=== PATIENT | male | born 1945 ===

== ENCOUNTER 2021-01-05 13:17 | Inpatient (IN) | payer MEDICARE ==
--- NOTE | 2021-01-05 14:40 | CT ---
CT BRAIN WITHOUT CONTRAST: Indications: Mental status change. Comparison: None FINDINGS: There is moderate cortical atrophy. Ventricles have normal size and position. Moderately severe chron ic ischemic white matter changes are seen in both cerebral hemispheres. There is no evidence of mass or hemorrhage. There is no evidence of acute cortical infarct. The paranasal sinuses and mastoids are clear. IMPRESSION: Cortical atrophy and moderately severe chronic ischemic white matter changes are noted. No evidence o f acute cortical infarct. POS: AGW
--- NOTE | 2021-01-05 15:04 | RAD ---
CHEST ONE VIEW: History: Altered mental status. Comparison: None FINDINGS: Exam is limited due to dense radiopacities projecting over both shoulders, midline upper abdomen and right arm. Within the limitation, there appears to be a right sided posterior 9th and 10th rib fractu res, age indeterminate. No definite pneumothorax. Cardiac silhouette and mediastinal contours appear within normal limits. No airspace consolidation. IMPRESSION: 1. Right posterolateral 9th and 10th rib fractures, age indeterminate. 2. No evidence for pneumonia. 3. Radiopacities with cloud like densities projecting over the shoulder bilaterally, midline upp er abdomen and right upper arm. POS: HOME
[2021-01-05 15:56] LABS: #Lymphocytes 0.7 thou/uL (1.20-3.40); #Monocytes 0.7 thou/uL (0.11-0.59); #Neutrophils 12.2 thou/uL (1.40-6.50); %Basophils 0.1 % (0.0-1.0); %Lymphocytes 5.1 % (21.0-51.0); %Neutrophils 89.8 % (42.0-75.0); Hemoglobin 13.7 g/dL (14.0-18.0); Mean Corpuscular HGB CONC 34.9 g/dL (32.0-36.0); Mean Corpuscular Hemoglobin 35.4 pg (27.0-31.0); Mean Platelet Volume 8.3 fL (7.4-10.4); Platelet Count 151 thou/uL (130-400); RBC Distribution Width 11.3 % (11.5-14.5); Red Blood Cell (RBC) Count 3.88 mill/uL (4.70-6.10); White Blood Cell (WBC) Count 13.5 thou/uL (4.8-10.8)
--- NOTE | 2021-01-05 16:17 | RAD ---
CHEST ONE VIEW: History: Falls. Slurred speech. Comparison: Same day FINDINGS: New left subclavian central venous catheter tip projects to the inferior SVC. No pneumothorax. Similar appearance of the right posterolateral 9th and 10th rib fractures. IMPRESSION: Uncomplicated left subclavian central venous catheter placement. POS: HOME
[2021-01-05 16:18] LABS: Acetaminophen Less than 6.0 mcg/mL (10.0-30.0); Alcohol Less than 10 mg/dL (Less than 10); Salicylate Less than 8.0 mg/dL (15.0-30.0)
[2021-01-05 16:19] LABS: ALT (SGPT) 139 U/L (8-55); AST (SGOT) 567 U/L (5-34); Albumin 2.5 g/dL (3.4-4.8); Alkaline Phosphatase 81 U/L (40-110); Anion Gap 21 mmol/L (10-20); BUN (Urea Nitrogen) 41 mg/dL (8.4-25.7); Bilirubin, Total 0.9 mg/dL (0.2-1.2); Calc. Creatinine Clearance 0 mL/min (70-130); Calcium 7.1 mg/dL (7.8-10.44); Carbon Dioxide 12 mmol/L (23-31); Chloride 96 mmol/L (98-107); Globulin 2.1 g/dL (2.4-3.5); Glucose 75 mg/dL (83-110); Lipase 127 U/L (8-78); Potassium 4.1 mmol/L (3.5-5.1); Protein, Total 4.6 g/dL (5.8-8.1); Sodium 125 mmol/L (136-145)
--- NOTE | 2021-01-05 16:27 | RAD ---
PELVIS ONE VIEW: History: Falls Comparison: None FINDINGS: Obterator rings are intact. No acute displaced fracture or malalignment. Dextroscoliotic change of the lower lumbar spine causes abutment to the right L5 transverse process o f the sacrum. Moderate osseous calcifications. IMPRESSION: No acute displaced fracture. If the patient is acutely unable to be unable to bear weight, CT would b e recommended. POS: HOME
[2021-01-05 16:48] LABS: CK (CPK) 13352 U/L (30-200)
[2021-01-05] MEDS ORDERED: Cefepime 2 GM VIAL ONE (16:54)
[2021-01-05] MEDS ORDERED: Vancomycin 1 GM/200 ML BAG ONE (16:54)
[2021-01-05 17:15] LABS: Bacteria/HPF None Seen HPF (None Seen); Bilirubin Negative (Negative); Blood, Urine 3+ (Negative); Clarity Clear (Clear); Glucose, Urine (Dipstick) Normal (Negative); Ketone, Urine 20 mg/dL (Negative); Leukocyte Negative Leu/uL (Negative); Nitrite Negative (Negative); Protein, Urine (Dipstick) 30 mg/dL (Neg-Trace); RBC/HPF 0-3 HPF (0-3); Specific Gravity, Urine 1.016 (1.002-1.036); Squamous Epithelial None Seen HPF (0-3); Urobilinogen Normal mg/dL (Less than 2)
[2021-01-05] MEDS ORDERED: Thiamine HCl 200 MG/2 ML VIAL SLOW IVP SCH (17:15)
[2021-01-05 17:25] LABS: Amphetamine Not Detected (NotDetected); Barbiturates Screen Not Detected (NotDetected); Benzodiazepine Screen Not Detected (NotDetected); Cocaine Metabolite Screen Not Detected (NotDetected); Medtox Control Line Valid? VALID (VALID); Medtox Reader # READER 4; Methadone Not Detected (NotDetected); Methamphetamine Not Detected (NotDetected); Opiate Screen Not Detected (NotDetected); Oxycodone Screen Not Detected (NotDetected); Phencyclidine (PCP) Not Detected (NotDetected); THC/Cannabinoid Screen Not Detected (NotDetected); Tricyclic Screen Not Detected (NotDetected)
[2021-01-05 18:06] LABS: SARS-CoV-2 NAA Rapid Test Not Detected (NotDetected)
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
[2021-01-05 19:27] LABS: Anion Gap 19 mmol/L (10-20); BUN (Urea Nitrogen) 37 mg/dL (8.4-25.7); Calc. Creatinine Clearance 0 mL/min (70-130); Calcium 6.4 mg/dL (7.8-10.44); Chloride 106 mmol/L (98-107); Glucose 67 mg/dL (83-110); Potassium 4.7 mmol/L (3.5-5.1); Sodium 129 mmol/L (136-145)
[2021-01-05 19:46] LABS: Carbon Dioxide 9 mmol/L (23-31)
[2021-01-05] MEDS ORDERED: Atropine Sulfate 1 mg/10 ml Syringe ONE (22:07)
[2021-01-05] MEDS ORDERED: Norepinephrine 8 MG/0.9% NS 250 ML ONE (22:09)
[2021-01-05] MEDS ORDERED: Rocuronium Bromide 10 MG/ML (10ML VIAL) ONE (22:12)
[2021-01-05] MEDS: Fentanyl CADD 100 ML IV SCH (22:30)
[2021-01-05] MEDS ORDERED: Dextrose 50% Abboject 50 ML SYRINGE ONE (22:43)
[2021-01-05 22:58] LABS: Actual Bicarbonate (HCO3a) 10.8 mEq/L (22-28); Analyzer IN Cardio ER; Base Excess (BEa) -16.6 mEq/L (-2.0 to +3.0); CO2 Tension 30.8 mmHg (35.0-45.0); Calcium, Ionized (arterial) 1.01 mmol/L (1.12-1.30); Carboxyhemoglobin (COHb) 0.3 gm% (0.0-3.0); Hemoglobin (Hb) 11.6 g/dL (14.0-18.0); Potassium - ABG Lab 3.54 mmol/L (3.70-5.30)
[2021-01-05] MEDS: Norepinephrine 8 MG/0.9% NS 250 ML IVPB SCH (23:00)
[2021-01-05] MEDS ORDERED: Sodium Bicarb 50 MEQ/50 ML VIAL ONE (23:01)
[2021-01-05 23:02] LABS: Anion Gap 18 mmol/L (10-20); BUN (Urea Nitrogen) 33 mg/dL (8.4-25.7); Calc. Creatinine Clearance 0 mL/min (70-130); Calcium 6.1 mg/dL (7.8-10.44); Carbon Dioxide 10 mmol/L (23-31); Chloride 109 mmol/L (98-107); Potassium 3.9 mmol/L (3.5-5.1); Sodium 133 mmol/L (136-145)
--- NOTE | 2021-01-05 23:02 | RAD ---
Chest one view HISTORY: Intubated. COMPARISON: Earlier exam on the same date. FINDINGS: Tip of the endotracheal catheter projects over the thoracic inlet. Nasogastric tube descend s the abdomen. Left subclavian central venous catheter unchanged in position. New ill-defined parenchymal opacity projects over the right lateral lung base. Mildly displaced right lateral rib fractures again demonstrated. No evidence of pneumothorax. IMPRESSION : Endotracheal catheter is in good radiographic position. Given the recent right rib fractures, the developing right lower lobe opacity may represent contusion .
[2021-01-05 23:07] LABS: Glucose 49 mg/dL (83-110)
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
[2021-01-05 23:09] LABS: pH, Arterial 7.16 (7.35-7.45)
[2021-01-05 23:10] LABS: Puncture Site LRA
--- NOTE | 2021-01-05 23:39 | CT ---
CT head noncontrast HISTORY: Cardiac arrest. COMPARISON: Earlier exam on the same date. FINDINGS: There is no evidence of acute intracranial hemorrhage or infarct. Diffuse cortical atrophy and chronic ischemic small vessel disease are again demonstrated. Physiologic calcification at the basal ganglia. There is no mass effect or shift of midline structures. Mild mucosal thickening in the ethmoid air ce lls and maxillary sinus. IMPRESSION : No acute abnormalities are demonstrated.
[2021-01-05] MEDS ORDERED: Dextrose 5% in Water 1,000 ML IV SCH (23:45)
[2021-01-06 00:20] LABS: Lactic Acid 1.9 mmol/L (0.5-2.2)
[2021-01-06 00:27] LABS: Analyzer IN Cardio ER; Base Excess (BEa) -11.3 mEq/L (-2.0 to +3.0); CO2 Tension 35.2 mmHg (35.0-45.0); Calcium, Ionized (arterial) 1.01 mmol/L (1.12-1.30); Carboxyhemoglobin (COHb) 0.3 gm% (0.0-3.0); Hemoglobin (Hb) 13.5 g/dL (14.0-18.0); O2 Tension (PaO2), arterial 77.6 mmHg (> 70.0); Potassium - ABG Lab 3.01 mmol/L (3.70-5.30)
[2021-01-06 00:33] LABS: Puncture Site RRA; pH, Arterial 7.25 (7.35-7.45)
[2021-01-06 02:58] LABS: Anion Gap 16 mmol/L (10-20); BUN (Urea Nitrogen) 29 mg/dL (8.4-25.7); Calc. Creatinine Clearance 62 mL/min (70-130); Calcium 6.6 mg/dL (7.8-10.44); Carbon Dioxide 14 mmol/L (23-31); Chloride 108 mmol/L (98-107); Glucose 159 mg/dL (83-110); Sodium 135 mmol/L (136-145)
[2021-01-06 03:01] LABS: Potassium 2.9 mmol/L (3.5-5.1)
[2021-01-06 04:18] LABS: ALT (SGPT) 153 U/L (8-55); AST (SGOT) 576 U/L (5-34); Albumin 2.5 g/dL (3.4-4.8); Alkaline Phosphatase 77 U/L (40-110); Bilirubin, Direct 0.7 mg/dL (0.1-0.3); Bilirubin, Total 0.9 mg/dL (0.2-1.2); Magnesium 1.8 mg/dL (1.6-2.6); Protein, Total 4.8 g/dL (5.8-8.1)
[2021-01-06] MEDS ORDERED: Electrolyte Replacement Protocol FS PRN (04:30)
[2021-01-06] MEDS ORDERED: Lorazepam 2 MG/ML VIAL ONE (04:33)
[2021-01-06] MEDS ORDERED: Magnesium 2 GM/50 ML 2 GM in Premix Bag 1 BAG IVPB SCH (04:45)
[2021-01-06 04:48] LABS: CK (CPK) 11614 U/L (30-200)
[2021-01-06] MEDS: Sodium Chloride 0.9% 1,000 ML IV SCH (04:48)
[2021-01-06] MEDS ORDERED: Lorazepam 2 MG/ML VIAL SLOW IVP SCH (05:00)
[2021-01-06] MEDS ORDERED: Diazepam 5 MG TAB PO PRN (05:01)
[2021-01-06] MEDS: Potassium Chloride 40 MEQ in Premix Bag 1 BAG IVPB SCH ×2 (05:17→09:35)
[2021-01-06] MEDS ORDERED: Vancomycin 1 GM/200 ML BAG ONE ×2 (05:28→18:08)
[2021-01-06] MEDS ORDERED: Diazepam 5 MG TAB PO SCH (05:30)
[2021-01-06] MEDS: Cefepime 1 GM in Sodium Chloride 0.9% 100 ML IVPB SCH ×2 (05:45→18:05)
[2021-01-06] MEDS: Norepinephrine 8 MG/0.9% NS 250 ML IVPB SCH ×4 (05:47→18:38)
[2021-01-06] MEDS: Vancomycin 1 GM in Premix Bag 1 BAG IVPB SCH ×2 (05:48→18:09)
[2021-01-06 06:55] LABS: Anion Gap 17 mmol/L (10-20); BUN (Urea Nitrogen) 28 mg/dL (8.4-25.7); Calc. Creatinine Clearance 61 mL/min (70-130); Calcium 6.3 mg/dL (7.8-10.44); Carbon Dioxide 14 mmol/L (23-31); Chloride 108 mmol/L (98-107); Glucose 146 mg/dL (83-110); Potassium 3.5 mmol/L (3.5-5.1); Sodium 135 mmol/L (136-145)
[2021-01-06 07:46] LABS: Actual Bicarbonate (HCO3a) 12.4 mEq/L (22-28); Base Excess (BEa) -11.1 mEq/L (-2.0 to +3.0); Calcium, Ionized (arterial) 1.01 mmol/L (1.12-1.30); Carboxyhemoglobin (COHb) 0.4 gm% (0.0-3.0); Potassium - ABG Lab 3.83 mmol/L (3.70-5.30); pH, Arterial 7.35 (7.35-7.45)
[2021-01-06 07:49] LABS: CO2 Tension 22.8 mmHg (35.0-45.0); Puncture Site RRA
[2021-01-06] MEDS ORDERED: Folic Acid 1 MG TAB PO SCH (09:00)
[2021-01-06] MEDS ORDERED: Multivitamin W/ Minerals 1 TAB PO SCH (09:00)
[2021-01-06 09:09] LABS: Hemoglobin 13.6 g/dL (14.0-18.0); Mean Corpuscular HGB CONC 34.5 g/dL (32.0-36.0); Mean Corpuscular Hemoglobin 34.5 pg (27.0-31.0); Mean Platelet Volume 8.5 fL (7.4-10.4); Platelet Count 183 thou/uL (130-400); RBC Distribution Width 11.6 % (11.5-14.5); Red Blood Cell (RBC) Count 3.93 mill/uL (4.70-6.10); White Blood Cell (WBC) Count 10.3 thou/uL (4.8-10.8)
[2021-01-06 09:31] LABS: Band 43 % (5-11); Burr Cells SLIGHT = 2-5 cells (100X) (0-1/hpf); Lymphocytes 2 % (21-51); MDiff Complete? YES; Monocytes 5 % (0-10); Neutrophil 48 % (42-75); Platelet Morphology Comment Appears Adequate; Reactive Lymphocytes 1 % (0-10); Reflex for Review?? NO
[2021-01-06] MEDS: Multivitamins, Adult 10 ML, Folic Acid 1 MG in Sodium Chloride 0.9% 1,000 ML IV SCH (10:19)
[2021-01-06 10:30] LABS: Anion Gap 16 mmol/L (10-20); BUN (Urea Nitrogen) 26 mg/dL (8.4-25.7); Calc. Creatinine Clearance 59 mL/min (70-130); Calcium 6.6 mg/dL (7.8-10.44); Carbon Dioxide 15 mmol/L (23-31); Chloride 110 mmol/L (98-107); Glucose 129 mg/dL (83-110); Potassium 4.7 mmol/L (3.5-5.1); Sodium 136 mmol/L (136-145)
[2021-01-06] MEDS ORDERED: Albumin 25% 25 GM/100 ML BOT IVPB SCH (11:30)
[2021-01-06] MEDS ORDERED: Calcium Chloride 1 GM/10 ML Abboject SYRINGE IVP SCH (11:30)
[2021-01-06] MEDS ORDERED: Calcium Chloride 1 GM/10 ML Abboject SYRINGE ONE (12:30)
[2021-01-06] MEDS ORDERED: Sodium Chloride 0.9% 50 ML ONE (12:41)
[2021-01-06 12:56] LABS: Magnesium 2.2 mg/dL (1.6-2.6)
[2021-01-06] MEDS ORDERED: Potassium Phosphate 15 MMOL in Sodium Chloride 0.9% 100 ML IVPB SCH (13:15)
[2021-01-06] MEDS: Hydrocortisone Sod Succ/PF 100 mg/2 ml Vial IVP SCH ×2 (13:41→18:05)
--- NOTE | 2021-01-06 13:43 | CON ---
DATE OF CONSULTATION: SUBJECTIVE: A 75-year-old cachectic gentleman with multiple bruises, sores, who was brought in last night at 1819 hypothermic, hypoxic, confused. Initial respirations were 26, pulse 86, sats 90% on room air, temperature is 87 degrees, was minimally responsive. He was seen by the ER physician. Please review his note. He was given fluids. He was given some broad-spectrum antibiotics. He is intubated. He is in the PACU. I spoke to the patient's sister at length. She lives in [place], outside [place], who says that patient sees the [facility] and has no primary care physician. He drinks 24 cans of beer regularly, smokes a pack a day. He has been cachectic. He is not eating. He has had significant diarrhea for a long period of time and has not returned to the [facility] for further workup. He takes what appears to be a medicine for blood pressure, unknown. It is from a pharmacy out of [place]. PAST MEDICAL HISTORY: Hypertension, chronic diarrhea. MEDICATIONS: Unknown blood pressure. ALLERGIES: UNKNOWN. SOCIAL HISTORY: He is unemployed. REVIEW OF SYSTEMS: Otherwise, unobtainable. He is maxed out on the Levophed. PHYSICAL EXAMINATION: VITAL SIGNS: His temperature 96, pulse 106, blood pressure 120/59, sats 100%. His urine output has been good. CHEST: Rhonchi and crackles. CARDIAC: Normal S1, S2. ABDOMEN: No masses. LABORATORY DATA: White count 10,000, H and H are 13 and 39, 48 segs, 43 bands. PO2 73, pCO2 22, ph of 7.35, at 24, 40%. His lytes are normal. His bicarb was 15, chloride is 110. Calcium is 6.6. ASSESSMENT: Status post hypothermia, rule out sepsis, history of heavy alcohol abuse, alcoholic, history of tobacco abuse, COPD, chronic diarrhea [facility]. No return for followup. Multiple abnormalities in the blood. PLAN: Cortisol level, mag, phosphorus level, thyroid function were ordered. Vasopressin initiated if he is not going to respond to Levophed and IV fluids. Serial labs. His sister is going to talk to the patient's son about code status. She says she wants to make him a DNR. We do not know who has the power of civil rights attorney at this stage. This is a 45-minute critical time. Job ID: [id number]
[2021-01-06 14:05] LABS: Chloride 112 mmol/L (98-107); Potassium 5.1 mmol/L (3.5-5.1); Sodium 138 mmol/L (136-145)
[2021-01-06 14:06] LABS: Calcium 6.7 mg/dL (7.8-10.44); Glucose 101 mg/dL (83-110)
[2021-01-06 14:08] LABS: Anion Gap 14 mmol/L (10-20); Carbon Dioxide 17 mmol/L (23-31)
[2021-01-06 14:10] LABS: BUN (Urea Nitrogen) 26 mg/dL (8.4-25.7); Calc. Creatinine Clearance 57 mL/min (70-130)
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
[2021-01-06] MEDS ORDERED: Enoxaparin Sodium 40 MG/0.4 ML SYRINGE SC SCH (15:30)
[2021-01-06] MEDS ORDERED: Hydrocortisone Sod Succ/PF 100 mg/2 ml Vial ONE (17:08)
[2021-01-06] MEDS ORDERED: Enoxaparin Sodium 30 MG/0.3 ML SYRINGE ONE (18:02)
[2021-01-06] MEDS: Fentanyl CADD 100 ML IV SCH (19:25)
[2021-01-06] MEDS ORDERED: FLU VACC QS2020-21(6MOS UP)/PF 60 MCG/0.5 ML SYRINGE IM ONE (21:00)
--- NOTE | 2021-01-06 21:24 | EKG ---
Test Reason : Blood Pressure : / mmHG Vent. Rate : 121 BPM Atrial Rate : 121 BPM P-R Int : 152 ms QRS Dur : 062 ms QT Int : 310 ms P-R-T Axes : 060 065 075 degrees QTc Int : 440 ms Sinus tachycardia Low voltage QRS Borderline ECG Confirmed by DR. Fox STOUT MD ([id number]) on 01/06/2021 9:24:29 PM Referred By: NICOLASA Confirmed By:DR. Fox STOUT MD
[2021-01-06] MEDS: Famotidine/PF 20 mg/2ml Vial SLOW IVP SCH (21:47)
[2021-01-07 00:11] LABS: Potassium 5.1 mmol/L (3.5-5.1)
[2021-01-07] MEDS: Hydrocortisone Sod Succ/PF 100 mg/2 ml Vial IVP SCH ×4 (01:42→17:11)
[2021-01-07] MEDS: Norepinephrine 8 MG/0.9% NS 250 ML IVPB SCH ×2 (01:48→08:38)
[2021-01-07] MEDS ORDERED: Diazepam 5 MG TAB PO PRN (04:00)
[2021-01-07 04:36] LABS: ALT (SGPT) 114 U/L (8-55); AST (SGOT) 307 U/L (5-34); Albumin 2.5 g/dL (3.4-4.8); Alkaline Phosphatase 60 U/L (40-110); Anion Gap 14 mmol/L (10-20); BUN (Urea Nitrogen) 18 mg/dL (8.4-25.7); Bilirubin, Direct 0.9 mg/dL (0.1-0.3); Bilirubin, Total 1.2 mg/dL (0.2-1.2); CK (CPK) 2115 U/L (30-200); Calc. Creatinine Clearance 73 mL/min (70-130); Calcium 7.3 mg/dL (7.8-10.44); Carbon Dioxide 15 mmol/L (23-31); Chloride 116 mmol/L (98-107); Glucose 94 mg/dL (83-110); Potassium 5.1 mmol/L (3.5-5.1); Protein, Total 4.7 g/dL (5.8-8.1); Sodium 140 mmol/L (136-145)
[2021-01-07 05:09] LABS: Band 36 % (5-11); Eosinophils 1 % (0-10); Hypochromia SLIGHT = 6-15 cells (100X) (0-5/hpf); Lymphocytes 6 % (21-51); MDiff Complete? YES; Mean Corpuscular HGB CONC 34.9 g/dL (32.0-36.0); Mean Corpuscular Hemoglobin 36.2 pg (27.0-31.0); Mean Platelet Volume 8.2 fL (7.4-10.4); Monocytes 10 % (0-10); Neutrophil 47 % (42-75); Platelet Count 149 thou/uL (130-400); Platelet Morphology Comment Appears Adequate; Red Blood Cell (RBC) Count 3.58 mill/uL (4.70-6.10); White Blood Cell (WBC) Count 14.2 thou/uL (4.8-10.8)
[2021-01-07] MEDS: Cefepime 1 GM in Sodium Chloride 0.9% 100 ML IVPB SCH ×2 (05:11→17:06)
[2021-01-07] MEDS: Vancomycin 1 GM in Premix Bag 1 BAG IVPB SCH ×2 (05:11→17:12)
[2021-01-07] MEDS: Enoxaparin Sodium 40 MG/0.4 ML SYRINGE SC SCH (08:37)
[2021-01-07] MEDS: Multivitamins, Adult 10 ML, Folic Acid 1 MG in Sodium Chloride 0.9% 1,000 ML IV SCH (08:37)
[2021-01-07] MEDS: Famotidine/PF 20 mg/2ml Vial SLOW IVP SCH ×2 (08:38→20:43)
[2021-01-07] MEDS: Thiamine 100 MG TAB PO SCH (08:38)
[2021-01-07] MEDS: Magnesium Oxide 400 MG TAB PO SCH (08:38)
--- NOTE | 2021-01-07 09:02 | RAD ---
SINGLE VIEW OF THE CHEST: COMPARISON: 01/05/2021. HISTORY: Ventilated patient with respiratory failure. FINDINGS: A single view of the chest shows a normal-size cardiomediastinal silhouette. The lines and tubes are unchanged in position. Scattered bilateral multiple infiltrates and perihilar infiltrates are seen and remain stable. No obvious pleural effusion. IMPRESSION: Stable exam. POS: CLARISAA
[2021-01-07] MEDS ORDERED: Albumin 25% 25 GM/100 ML BOT IVPB ONE (09:05)
--- NOTE | 2021-01-07 10:18 | PRG ---
DATE OF SERVICE: SUBJECTIVE: Quan Pratt is a 75-year-old cachectic gentleman whom I spoke to both family members yesterday. They made him a DNR. This has no quality of life. He sits in a chair at home by himself and drinks 25 beers a day. He is presently intubated on the vent, still on low-dose Levophed. OBJECTIVE: VITAL SIGNS: Temperature is 99, blood pressure is 109/59, pulse 103, sats are 100% on 40%, PEEP of 5, rate of 20. CHEST: Rhonchi, crackles. CARDIAC: Normal S1. ABDOMEN: No masses. LABORATORY DATA: His chloride is 116, sodium 140, potassium 5.1. White count 49982, platelet count is normal. Liver function is slightly elevated. CK has come down somewhat. X-ray shows bilateral small infiltrates. His cortisol level was decreased suggesting he has some relative adrenal insufficiency, this was 19 when he was hypertensive. ASSESSMENT: 1. Multiorgan failure, respiratory failure, chronic obstructive pulmonary disease, tobacco abuse, alcohol abuse. 2. Rhabdomyolysis. 3. Encephalopathy, possibly aspiration pneumonia. PLAN: He has stress dose of steroids, trying to wean his Levophed, additional albumin. Nutrition is being started. Continue antibiotics. We probably should discontinue the vancomycin when cultures are back. Wean as tolerated. One-half hour of critical time. Job ID: [id number]
[2021-01-07 10:26] LABS: Lactic Acid 1.5 mmol/L (0.5-2.2)
[2021-01-07 14:05] VITALS: BMI 19.3
[2021-01-07] MEDS: Lorazepam 2 MG/ML VIAL SLOW IVP PRN (14:13)
[2021-01-07 14:16] LABS: Lactic Acid 2.5 mmol/L (0.5-2.2)
[2021-01-07] MEDS ORDERED: Bacitracin 1 PK TOP PRN (15:29)
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
[2021-01-07] MEDS: levETIRAcetam in NS 1,000 MG in Premix Bag 1 BAG IVPB SCH (15:53)
--- NOTE | 2021-01-07 15:57 | PDOC.EEG ---
Neurology EEG Report - Report Report: his EEG was performed using 24 channel Synack video EEG machine with 24 disc electrodes. Digital analysis of the EEG was done for spike and seizure detection which revealed no abnormalities. Background: The posterior background rhythm is not observed. Hyperventilation: Not performed. Photic Stimulation: Performed. Sleep: No stage changes observed. EEG Diagnosis: Generalized voltage attenuation intermixed with low amplitude occasional delta seen during the recording Clinical interpretation: This EEG is consistent with severe generalized nonspecific cerebral dysfunction. Burst suppression pattern is seen which is poor prognosis
[2021-01-07] MEDS ORDERED: Calcium Gluconate 4.6 MEQ in Sodium Chloride 0.9% 100 ML IVPB SCH (16:31)
--- NOTE | 2021-01-07 19:27 | CT ---
CT HEAD WITHOUT CONTRAST: 01/07/21 INDICATIONS: CVA. New onset seizure. COMPARISON: Comparison made to CT head of 01/05/21. Cortical atrophy is again noted. Mild chronic ischemic white matter changes again noted. There is no evidence of mass or hemorrhage. There is no evidence of acute infarct. No change from the exam of two days ago. IMPRESSION: No acute process. No interval change. POS: AGW
[2021-01-08] MEDS: Hydrocortisone Sod Succ/PF 100 mg/2 ml Vial IVP SCH ×5 (00:13→23:15)
[2021-01-08] MEDS: Norepinephrine 8 MG/0.9% NS 250 ML IVPB SCH (00:14)
[2021-01-08] MEDS: Vancomycin 1 GM in Premix Bag 1 BAG IVPB SCH (04:17)
[2021-01-08] MEDS: Cefepime 1 GM in Sodium Chloride 0.9% 100 ML IVPB SCH ×2 (04:17→16:33)
[2021-01-08 04:59] LABS: ALT (SGPT) 92 U/L (8-55); AST (SGOT) 196 U/L (5-34); Albumin 2.6 g/dL (3.4-4.8); Alkaline Phosphatase 71 U/L (40-110); Anion Gap 10 mmol/L (10-20); BUN (Urea Nitrogen) 19 mg/dL (8.4-25.7); Bilirubin, Total 1.3 mg/dL (0.2-1.2); CK (CPK) 860 U/L (30-200); Calc. Creatinine Clearance 71 mL/min (70-130); Calcium 7.6 mg/dL (7.8-10.44); Carbon Dioxide 20 mmol/L (23-31); Chloride 121 mmol/L (98-107); Glucose 180 mg/dL (83-110); Potassium 4.1 mmol/L (3.5-5.1); Protein, Total 4.6 g/dL (5.8-8.1); Sodium 147 mmol/L (136-145)
[2021-01-08 05:13] LABS: Hemoglobin 11.5 g/dL (14.0-18.0); Lymphocytes 5 % (21-51); MDiff Complete? YES; Mean Corpuscular HGB CONC 33.3 g/dL (32.0-36.0); Mean Corpuscular Hemoglobin 34.2 pg (27.0-31.0); Mean Platelet Volume 8.5 fL (7.4-10.4); Metamyelocyte 1 % (0-0); Monocytes 2 % (0-10); Neutrophil 92 % (42-75); Nucleated RBC 2 % (0); Platelet Count 117 thou/uL (130-400); Platelet Morphology Comment Appears Decreased; RBC Distribution Width 12.3 % (11.5-14.5); RBC Morphology Normal; Red Blood Cell (RBC) Count 3.36 mill/uL (4.70-6.10); White Blood Cell (WBC) Count 12.5 thou/uL (4.8-10.8)
[2021-01-08] MEDS: Multivitamins, Adult 10 ML, Folic Acid 1 MG in Sodium Chloride 0.9% 1,000 ML IV SCH (08:26)
[2021-01-08] MEDS: Enoxaparin Sodium 40 MG/0.4 ML SYRINGE SC SCH (08:59)
[2021-01-08] MEDS: Famotidine/PF 20 mg/2ml Vial SLOW IVP SCH ×2 (08:59→20:12)
[2021-01-08] MEDS: Magnesium Oxide 400 MG TAB PO SCH (08:59)
[2021-01-08] MEDS: Thiamine 100 MG TAB PO SCH (09:00)
[2021-01-08] MEDS: levETIRAcetam in NS 1,000 MG in Premix Bag 1 BAG IVPB SCH ×3 (09:23→20:05)
--- NOTE | 2021-01-08 10:25 | RAD ---
PORTABLE CHEST: HISTORY: Respiratory distress. FINDINGS: Endotracheal and NG tubes remain in satisfactory position. Left subclavian line is unchanged in posi tion. Bibasilar lung changes are stable as compared to the prior exam. IMPRESSION: Stable overall exam. POS: TAWANNA
--- NOTE | 2021-01-08 13:27 | PRG ---
DATE OF SERVICE: 01/08/2021 This is 35 minutes of critical care time. SUBJECTIVE: The patient remains intubated on mechanical ventilation. He will look around with his eyes, but does not follow any commands for me, specifically. OBJECTIVE: VITAL SIGNS: His temperature is 98.3, pulse 95, blood pressure 92/64. He is currently on no vasopressors. GENERAL: He looks cachectic and in overall poor health. HEENT: Remarkable for intubated airway. NECK: No JVD. CHEST: Clear, but distant breath sounds. CARDIAC: S1 and S2, is slightly tachycardic. ABDOMEN: Soft. EXTREMITIES: Severe muscle wasting. DIAGNOSTIC STUDIES: His x-ray shows a well placed endotracheal tube without overt mass, effusion, or infiltrate LABORATORY DATA: White blood cell count 12, hematocrit 34, and platelet count 117. Sodium 147, potassium 4.1, chloride 121, CO2 of 20, BUN 19, creatinine 0.8, glucose , AST 196, ALT 92, albumin is 2.6. ASSESSMENT: 1. Multiple organ failure including COPD/respiratory failure. 2. Rhabdomyolysis. 3. Alcohol abuse. 4. Encephalopathy. PLAN: The patient is now DNR. I do not think he is weanable at this time. We are continuing supportive care with the antibiotics, IV fluids, and thiamine. I believe that the vancomycin can be stopped since his cultures have not shown any growth of staphylococcal organisms. Job ID: [id number]
--- NOTE | 2021-01-08 17:42 | PDOC.HOSPP ---
- Subjective Encounter Date: 01/08/21 Encounter Time: 17:30 Subjective: f/u for AMS/Resp failure/Seizures on current [facility] ventilation. Nursing reports pt more awake, nodding head and moving LUE to command. - Objective Vital Signs & Weight: Vital Signs (12 hours) Temp Pulse Resp 01/08/21 16:00 98.8 F 25 H 01/08/21 14:29 103 H 01/08/21 14:00 18 01/08/21 12:00 98.3 F 20 01/08/21 10:56 96 01/08/21 10:00 19 01/08/21 08:00 105 H 21 H 01/08/21 07:00 98.5 F 01/08/21 06:00 23 H Weight Admit Weight 150 lb 0.04 oz Weight 139 lb 5.314 oz Most Recent Monitor Data Heart Rate from ECG 99 NIBP 108/60 NIBP BP-Mean 76 Respiration from ECG 23 SpO2 95 I&O: 01/07/21 01/08/21 01/09/21 06:59 06:59 06:59 Intake Total 1411.1 3642.6 3352 Output Total 1505 1345 750 Balance -93.9 2297.6 2602 Result Diagrams: 01/08/21 04:15 01/08/21 04:15 Additional Labs: Accuchecks 01/08/21 01/08/21 01/08/21 15:48 12:15 08:02 POC Glucose 156 H 136 H 193 H 01/08/21 01/08/21 01/07/21 04:21 00:35 21:06 POC Glucose 156 H 154 H 153 H Microbiology 01/05/21 16:37 Urine mendieta catheter Urine Culture - Final NO GROWTH AT 48 HOURS 01/05/21 16:04 Central Line - Left Subclavian Vein Blood Culture - Preliminary NO GROWTH AT 48 HOURS 01/05/21 15:43 Venous blood - Right Arm Blood Culture - Preliminary NO GROWTH AT 48 HOURS Laboratory Tests 01/05/21 01/05/21 01/05/21 15:43 15:43 15:43 Sodium Magnesium Ammonia 37 Creatine Kinase 13397 H Albumin TSH 3rd Generation 0.9969 Influenza A RNA INAAT Influenza B RNA INAAT SARS-CoV-2 Rap RNA(RT-PCR) 01/05/21 01/06/21 01/06/21 16:52 02:32 09:45 Sodium 136 Magnesium 1.8 Ammonia Creatine Kinase 84812 H Albumin 2.5 L TSH 3rd Generation Influenza A RNA INAAT Not Detected Influenza B RNA INAAT Not Detected SARS-CoV-2 Rap RNA(RT-PCR) Not Detected 01/06/21 01/06/21 01/06/21 09:45 11:29 12:46 Sodium 138 Magnesium 2.2 Ammonia Creatine Kinase Albumin TSH 3rd Generation 1.0913 Influenza A RNA INAAT Influenza B RNA INAAT SARS-CoV-2 Rap RNA(RT-PCR) 01/07/21 01/08/21 04:00 04:15 Sodium 140 Magnesium Ammonia Creatine Kinase 2115 H 860 H Albumin 2.5 L 2.6 L TSH 3rd Generation Influenza A RNA INAAT Influenza B RNA INAAT SARS-CoV-2 Rap RNA(RT-PCR) Radiology Reviewed by me: Yes (CT brain - no acute process, cortical atrophy) EKG Reviewed by me: Yes (Tele - SR) Hospitalist ROS - Medication Medications: Active Medications Generic Name Dose Route Start Last Admin Trade Name Freq PRN Reason Stop Dose Admin Enoxaparin Sodium 40 mg 01/07/21 09:00 01/08/21 08:59 Enoxaparin Sodium 40 Mg/0.4 Ml Syringe SC 40 mg 0900 ALBAN Administration Famotidine 20 mg 01/06/21 21:00 01/08/21 08:59 Famotidine/Pf 20 Mg/2ml Vial SLOW IVP 20 mg BID ALBAN Administration Hydrocortisone Sodium Succinate 50 mg 01/06/21 12:00 01/08/21 16:33 Hydrocortisone Sod Succ/Pf 100 Mg/2 Ml Vial IVP 01/13/21 06:01 50 mg Q6HR ALBAN Administration Cefepime HCl 1 gm/ Sodium 100 mls @ 200 mls/hr 01/06/21 05:00 01/08/21 16:33 Chloride IVPB 100 mls 0500,1700 ALBAN Administration Fentanyl 100 mls @ 0 mls/hr 01/05/21 22:30 01/06/21 19:25 Fentanyl Cadd IV 02/04/21 22:30 100 mls INF ALBAN Administration Protocol Per Protocol Norepinephrine Bitartrate 250 mls @ 0 mls/hr 01/06/21 04:15 01/08/21 00:14 Levophed IVPB 250 mls INF ALBAN Administration Protocol Titrate Multivitamins 10 ml/ Folic 1,010.2 mls @ 125 mls/hr 01/06/21 09:00 01/08/21 08:26 Acid 1 mg/ Sodium Chloride IV 1,010.2 mls DAILY ALBAN Administration Thiamine HCl 200 mg/ Sodium 52 mls @ 100 mls/hr 01/06/21 12:00 01/08/21 12:35 Chloride IVPB 01/10/21 00:32 52 mls 0000,1200 ALBAN Administration Ascorbic Acid 1,500 mg/ Sodium 53 mls @ 100 mls/hr 01/06/21 14:00 01/08/21 14:37 Chloride IVPB 01/10/21 08:32 53 mls 0200,0800,1400,2000 ALBAN Administration Levetiracetam 1,000 mg/ Device 100 mls @ 200 mls/hr 01/08/21 09:00 01/08/21 09:23 IVPB 100 mls BID ALABN Administration Lorazepam 2 mg 01/07/21 13:45 01/07/21 14:13 Lorazepam 2 Mg/Ml Vial SLOW IVP 2 mg Q4H PRN Administration Seizures Magnesium Oxide 400 mg 01/07/21 09:00 01/08/21 08:59 Magnesium Oxide 400 Mg Tab PO 400 mg DAILY ALBAN Administration Sodium Chloride 10 ml 01/06/21 21:00 01/08/21 09:00 Flush - Normal Saline 10 Ml Syringe IVF 10 ml Q12HR ALBAN Administration Thiamine HCl 100 mg 01/07/21 09:00 01/08/21 09:00 Thiamine 100 Mg Tab PO 100 mg DAILY ALBAN Administration Hospitalist Exam Vitals: Vital Signs (12 hours) Temp Pulse Resp 01/08/21 16:00 98.8 F 25 H 01/08/21 14:29 103 H 01/08/21 14:00 18 01/08/21 12:00 98.3 F 20 01/08/21 10:56 96 01/08/21 10:00 19 01/08/21 08:00 105 H 21 H 01/08/21 07:00 98.5 F 01/08/21 06:00 23 H Weight Admit Weight 150 lb 0.04 oz Weight 139 lb 5.314 oz Most Recent Monitor Data Heart Rate from ECG 99 NIBP 108/60 NIBP BP-Mean 76 Respiration from ECG 23 SpO2 95 General Appearance: awake alert General - other findings: nods briefly to questions Eye: PERRL, anicteric sclera ENT: normocephalic atraumatic, no oropharyngeal lesions Neck: supple, symmetric, no JVD, no thyromegaly, no lymphadenopathy Heart: RRR, no gallops, no rubs, normal peripheral pulses Heart - other findings: S1, S2 Respiratory: CTAB, no wheezes, no rales, no ronchi, normal chest expansion Gastrointestinal: soft, non-tender, non-distended, normal bowel sounds, no palpable masses Extremities: 1+ LE edema Skin: normal turgor Skin - other findings: multiple contusions/edema/serous drainage of extremities Musculoskeletal: generalized weakness Psychiatric: oriented to person, flat affect, somnolent Hosp A/P (1) Sepsis Code(s): A41.9 - SEPSIS, UNSPECIFIED ORGANISM Status: Acute Plan: Suspected with unclear source, continue Cefepime IV, initial cultures negative (2) Acute metabolic encephalopathy Code(s): G93.41 - METABOLIC ENCEPHALOPATHY Status: Acute Plan: ? etiology, ? hypothermic event, limit sedation/narcotics, monitor mental status, CT brain showed no acute infarct (3) Acute kidney injury Code(s): N17.9 - ACUTE KIDNEY FAILURE, UNSPECIFIED Status: Acute Plan: Resolved, avoid nephrotoxic meds and limit contrast (4) Hyponatremia Code(s): E87.1 - HYPO-OSMOLALITY AND HYPONATREMIA Status: Acute Plan: Resolved, now progressing to hypernatremia, monitor free-H2O status (5) Hypothermia Code(s): T68.XXXA - HYPOTHERMIA, INITIAL ENCOUNTER Status: Acute Plan: Resolved, monitor for clinical response (6) Metabolic acidosis Code(s): E87.2 - ACIDOSIS Status: Acute (7) Rhabdomyolysis Code(s): M62.82 - RHABDOMYOLYSIS Status: Acute Plan: Improved, continue serial CPK - Plan continue antibiotics, social service liaison, speech therapy, respiratory therapy, DVT proph w/lovenox Consults: Palliative Care Continue critical support Continue [facility] ventilation and wean as clinically indicated Continue Cefepime Limit sedation/narcotics PT evaluation when stabilizing AM lab: BMP, CBC, CPK
[2021-01-09] MEDS: Lorazepam 2 MG/ML VIAL SLOW IVP PRN ×2 (01:46→21:17)
[2021-01-09 04:01] LABS: Anion Gap 12 mmol/L (10-20); BUN (Urea Nitrogen) 27 mg/dL (8.4-25.7); CK (CPK) 499 U/L (30-200); Calc. Creatinine Clearance 74 mL/min (70-130); Calcium 7.8 mg/dL (7.8-10.44); Carbon Dioxide 19 mmol/L (23-31); Chloride 124 mmol/L (98-107); Glucose 151 mg/dL (83-110); Potassium 3.7 mmol/L (3.5-5.1); Sodium 151 mmol/L (136-145)
[2021-01-09 04:24] LABS: Band 8 % (5-11); Hemoglobin 11.5 g/dL (14.0-18.0); Hypochromia SLIGHT = 6-15 cells (100X) (0-5/hpf); Lymphocytes 4 % (21-51); MDiff Complete? YES; Macrocytosis SLIGHT = 6-15 cells (100X) (0-5/hpf); Mean Corpuscular HGB CONC 33.3 g/dL (32.0-36.0); Mean Corpuscular Hemoglobin 34.2 pg (27.0-31.0); Mean Platelet Volume 8.3 fL (7.4-10.4); Monocytes 9 % (0-10); Neutrophil 79 % (42-75); Platelet Count 68 thou/uL (130-400); Platelet Morphology Comment Appears Decreased; RBC Distribution Width 12.4 % (11.5-14.5); Red Blood Cell (RBC) Count 3.36 mill/uL (4.70-6.10); White Blood Cell (WBC) Count 11.2 thou/uL (4.8-10.8)
[2021-01-09] MEDS: Hydrocortisone Sod Succ/PF 100 mg/2 ml Vial IVP SCH ×4 (05:08→23:37)
[2021-01-09] MEDS: Cefepime 1 GM in Sodium Chloride 0.9% 100 ML IVPB SCH ×2 (05:08→16:53)
[2021-01-09] MEDS: Multivitamins, Adult 10 ML, Folic Acid 1 MG in Sodium Chloride 0.9% 1,000 ML IV SCH (08:03)
[2021-01-09] MEDS: Thiamine 100 MG TAB PO SCH (08:03)
[2021-01-09] MEDS: Enoxaparin Sodium 40 MG/0.4 ML SYRINGE SC SCH (08:03)
[2021-01-09] MEDS: levETIRAcetam in NS 1,000 MG in Premix Bag 1 BAG IVPB SCH ×2 (08:04→21:08)
[2021-01-09] MEDS: Famotidine/PF 20 mg/2ml Vial SLOW IVP SCH ×2 (08:04→21:08)
[2021-01-09] MEDS: Magnesium Oxide 400 MG TAB PO SCH (08:04)
--- NOTE | 2021-01-09 10:09 | RAD ---
PORTABLE CHEST: COMPARISON: Prior day's study. HISTORY: Respiratory distress. FINDINGS: Endotracheal and NG tubes and left central line are all unchanged in position. Heart size is within normal limits. Slight increased opacification in the left base as compared to the prior study. IMPRESSION: Increasing opacification in the left base as compared to the prior exam. This could represent infilt rate, possibly layering of effusion. POS: OFF
[2021-01-09] MEDS ORDERED: Dextrose 5% in Water 1,000 ML IV SCH (11:45)
--- NOTE | 2021-01-09 12:11 | PRG ---
DATE OF SERVICE: 01/09/2021 Thirty five minutes of critical care time. SUBJECTIVE: The patient remains on mechanical ventilation, poorly responsive. OBJECTIVE: VITAL SIGNS: Temperature 98.8, pulse 94, blood pressure 110/61, O2 saturation 96%. Total intake for the last 24 hours was 4534 and output 2465. HEENT: Shows bitemporal wasting. NECK: No JVD. LUNGS: Clear. CARDIAC: S1 and S2. Regular. ABDOMEN: Soft. EXTREMITIES: Reveal muscle wasting. LABORATORY DATA: White blood cell count of 11, hematocrit 34.5, and platelet count is down to 68 from 117. Sodium 151, potassium 3.7, chloride 124, CO2 of 19, BUN 27, creatinine 0.7, glucose 151. CPK is 499. Chest x-ray shows no change. ASSESSMENT: 1. Acute hypoxic respiratory failure requiring mechanical ventilation. 2. Rhabdomyolysis. 3. Alcohol abuse. 4. Encephalopathy. PLAN: I think the patient's odds of surviving this seem quite low and from what I am being told from the conversation with the family sounds like he would not want to proceed with this kind of treatment. Tomorrow, I would probably move towards palliative care and extubation. I have put him on D5W to compensate for his hypernatremia. He will continue with banana bag once a day. Continue antibiotics. Job ID: [id number]
--- NOTE | 2021-01-09 12:58 | PDOC.HOSPP ---
- Subjective Encounter Date: 01/09/21 Encounter Time: 12:45 Subjective: f/u for resp failure/AMS/sepsis on current [facility] ventilation/Cefepime. Unresponsive per nursing and remains vent dependent. - Objective Vital Signs & Weight: Vital Signs (12 hours) Temp Pulse Resp 01/09/21 12:00 98.7 F 30 H 01/09/21 10:05 93 01/09/21 10:00 30 H 01/09/21 08:00 30 H 01/09/21 07:44 96 01/09/21 07:00 98.8 F 01/09/21 06:00 27 H 01/09/21 04:00 98.5 F 26 H 01/09/21 02:00 23 H Weight Admit Weight 150 lb 0.04 oz Weight 142 lb 10.225 oz Most Recent Monitor Data Heart Rate from ECG 101 NIBP 116/62 NIBP BP-Mean 80 Respiration from ECG 30 SpO2 95 I&O: 01/08/21 01/09/21 01/10/21 06:59 06:59 06:59 Intake Total 3642.6 4534 300 Output Total 1345 2465 270 Balance 2297.6 2069 30 Result Diagrams: 01/09/21 03:20 01/09/21 03:20 Additional Labs: Accuchecks 01/09/21 01/09/21 01/09/21 08:29 03:26 00:29 POC Glucose 143 H 150 H 148 H 01/08/21 01/08/21 01/08/21 20:45 15:48 12:15 POC Glucose 164 H 156 H 136 H Radiology Reviewed by me: Yes (EEG - generalized cerebral dysfunct) EKG Reviewed by me: Yes (Tele - SR) Hospitalist ROS - Medication Medications: Active Medications Generic Name Dose Route Start Last Admin Trade Name Freq PRN Reason Stop Dose Admin Famotidine 20 mg 01/06/21 21:00 01/09/21 08:04 Famotidine/Pf 20 Mg/2ml Vial SLOW IVP 20 mg BID ALBAN Administration Hydrocortisone Sodium Succinate 50 mg 01/06/21 12:00 01/09/21 11:15 Hydrocortisone Sod Succ/Pf 100 Mg/2 Ml Vial IVP 01/13/21 06:01 50 mg Q6HR ALBAN Administration Cefepime HCl 1 gm/ Sodium 100 mls @ 200 mls/hr 01/06/21 05:00 01/09/21 05:08 Chloride IVPB 100 mls 0500,1700 ALBAN Administration Fentanyl 100 mls @ 0 mls/hr 01/05/21 22:30 01/06/21 19:25 Fentanyl Cadd IV 02/04/21 22:30 100 mls INF ALBAN Administration Protocol Per Protocol Norepinephrine Bitartrate 250 mls @ 0 mls/hr 01/06/21 04:15 01/08/21 00:14 Levophed IVPB 250 mls INF ALBAN Administration Protocol Titrate Multivitamins 10 ml/ Folic 1,010.2 mls @ 125 mls/hr 01/06/21 09:00 01/09/21 08:03 Acid 1 mg/ Sodium Chloride IV 1,010.2 mls DAILY ALBAN Administration Thiamine HCl 200 mg/ Sodium 52 mls @ 100 mls/hr 01/06/21 12:00 01/09/21 11:14 Chloride IVPB 01/10/21 00:32 52 mls 0000,1200 ALBAN Administration Ascorbic Acid 1,500 mg/ Sodium 53 mls @ 100 mls/hr 01/06/21 14:00 01/09/21 10:03 Chloride IVPB 01/10/21 08:32 53 mls 0200,0800,1400,2000 ALBAN Administration Levetiracetam 1,000 mg/ Device 100 mls @ 200 mls/hr 01/08/21 09:00 01/09/21 08:04 IVPB 100 mls BID ALBAN Administration Lorazepam 2 mg 01/07/21 13:45 01/09/21 01:46 Lorazepam 2 Mg/Ml Vial SLOW IVP 2 mg Q4H PRN Administration Seizures Magnesium Oxide 400 mg 01/07/21 09:00 01/09/21 08:04 Magnesium Oxide 400 Mg Tab PO 400 mg DAILY ALBAN Administration Sodium Chloride 10 ml 01/06/21 21:00 01/09/21 08:04 Flush - Normal Saline 10 Ml Syringe IVF 10 ml Q12HR ALBAN Administration Thiamine HCl 100 mg 01/07/21 09:00 01/09/21 08:03 Thiamine 100 Mg Tab PO 100 mg DAILY ALBAN Administration Hospitalist Exam Vitals: Vital Signs (12 hours) Temp Pulse Resp 01/09/21 12:00 98.7 F 30 H 01/09/21 10:05 93 01/09/21 10:00 30 H 01/09/21 08:00 30 H 01/09/21 07:44 96 01/09/21 07:00 98.8 F 01/09/21 06:00 27 H 01/09/21 04:00 98.5 F 26 H 01/09/21 02:00 23 H Weight Admit Weight 150 lb 0.04 oz Weight 142 lb 10.225 oz Most Recent Monitor Data Heart Rate from ECG 101 NIBP 116/62 NIBP BP-Mean 80 Respiration from ECG 30 SpO2 95 General Appearance: ill appearing General - other findings: unresponsive Eye: anicteric sclera ENT: normocephalic atraumatic, no oropharyngeal lesions Neck: supple, symmetric, no JVD, no thyromegaly, no lymphadenopathy Heart: RRR, no gallops, no rubs, normal peripheral pulses Heart - other findings: S1, S2 Respiratory: tachypneic Respiratory - other findings: diminished in bases, occ rhonchi Gastrointestinal: soft, non-tender, non-distended, normal bowel sounds, no palpable masses Extremities: no cyanosis, no clubbing, 2+ LE edema Extremities - other findings: BUE edema Skin: normal turgor Neurological - other findings: unresponsive, somnolent Psychiatric: somnolent, lethargic Hosp A/P (1) Sepsis Code(s): A41.9 - SEPSIS, UNSPECIFIED ORGANISM Status: Acute Plan: Continue Cefepime/Hydrocortisone/IVF's (2) Acute metabolic encephalopathy Code(s): G93.41 - METABOLIC ENCEPHALOPATHY Status: Acute Plan: Persistent, CT brain negative x 2 (3) Acute kidney injury Code(s): N17.9 - ACUTE KIDNEY FAILURE, UNSPECIFIED Status: Acute Plan: Resolved, serial monitoring (4) Hypernatremia Code(s): E87.0 - HYPEROSMOLALITY AND HYPERNATREMIA Status: Acute Plan: Continue D5 1/2 NS @ 75ml/h, serial Na+ (5) Hypothermia Code(s): T68.XXXA - HYPOTHERMIA, INITIAL ENCOUNTER Status: Acute Plan: Resolved (6) Metabolic acidosis Code(s): E87.2 - ACIDOSIS Status: Acute (7) Rhabdomyolysis Code(s): M62.82 - RHABDOMYOLYSIS Status: Acute Plan: Improved, continue IVF's - Plan continue antibiotics, 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
[2021-01-09] MEDS: Dextrose 5% in Water 1,000 ML IV SCH (16:53)
[2021-01-10 04:13] LABS: Band 24 % (5-11); Hemoglobin 11.5 g/dL (14.0-18.0); Lymphocytes 6 % (21-51); MDiff Complete? YES; Mean Corpuscular HGB CONC 33.6 g/dL (32.0-36.0); Mean Corpuscular Hemoglobin 34.2 pg (27.0-31.0); Mean Platelet Volume 9.8 fL (7.4-10.4); Monocytes 4 % (0-10); Neutrophil 66 % (42-75); Platelet Count 37 thou/uL (130-400); Platelet Morphology Comment Appears Decreased; RBC Distribution Width 12.6 % (11.5-14.5); Red Blood Cell (RBC) Count 3.37 mill/uL (4.70-6.10); White Blood Cell (WBC) Count 12.2 thou/uL (4.8-10.8)
[2021-01-10 04:15] LABS: Anion Gap 9 mmol/L (10-20); BUN (Urea Nitrogen) 31 mg/dL (8.4-25.7); CK (CPK) 283 U/L (30-200); Calc. Creatinine Clearance 78 mL/min (70-130); Calcium 7.6 mg/dL (7.8-10.44); Carbon Dioxide 21 mmol/L (23-31); Chloride 125 mmol/L (98-107); Glucose 171 mg/dL (83-110); Potassium 3.4 mmol/L (3.5-5.1); Sodium 152 mmol/L (136-145)
[2021-01-10] MEDS: Hydrocortisone Sod Succ/PF 100 mg/2 ml Vial IVP SCH ×2 (05:04→11:32)
[2021-01-10] MEDS: Cefepime 1 GM in Sodium Chloride 0.9% 100 ML IVPB SCH (05:04)
[2021-01-10] MEDS: Potassium Chloride 20 MEQ in Premix Bag 1 BAG IVPB SCH ×2 (06:44→08:07)
[2021-01-10] MEDS: Multivitamins, Adult 10 ML, Folic Acid 1 MG in Sodium Chloride 0.9% 1,000 ML IV SCH (07:05)
[2021-01-10] MEDS: Dextrose 5% in Water 1,000 ML IV SCH ×2 (08:18→09:06)
[2021-01-10] MEDS: Magnesium Oxide 400 MG TAB PO SCH (08:18)
[2021-01-10] MEDS: Thiamine 100 MG TAB PO SCH (08:19)
[2021-01-10] MEDS: levETIRAcetam in NS 1,000 MG in Premix Bag 1 BAG IVPB SCH (08:19)
[2021-01-10] MEDS: Famotidine/PF 20 mg/2ml Vial SLOW IVP SCH (08:19)
[2021-01-10] MEDS: Sodium Chloride 0.9% 1,000 ML IV SCH (08:20)
--- NOTE | 2021-01-10 10:21 | PRG ---
DATE OF SERVICE: 01/10/2021 SUBJECTIVE: Quan Pratt is a 75-year-old gentleman, remains off all sedation, still encephalopathic. OBJECTIVE: VITAL SIGNS: Temperature 98, respiratory rate 28, sats are 98% on 40%, rate of , blood pressure 110/57. His I's and O's have been consistently positive. CHEST: No wheezing. No crackles. CARDIAC: Normal S1. ABDOMEN: No masses, LABORATORY DATA: Lab shows a sodium of 152, chloride 125. White count 12,000. Glucose 283. Respiratory failure, alcohol abuse, found down at home. Sepsis syndrome. We are going to discontinue the banana bag. He has normal saline. Sodium is elevated. Switch over to D5. Otherwise, empiric antibiotics, stress dose of steroids. X-ray still shows bilateral infiltrates with small pleural effusion on the left side. ASSESSMENT: Respiratory failure, found down, alcohol abuse, encephalopathy, possibly anoxic injury. PLAN: Neurology was consulted would suggest anoxic injury. We are going to discuss findings with the family. Consider withdrawal of care. One-half hour of critical care time. Job ID: [id number]
[2021-01-10 11:07] VITALS: BP 112/65
[2021-01-10 12:06] VITALS: TEMP 99.2
[2021-01-10] MEDS ORDERED: Morphine 4 MG/ML VIAL ONE (13:06)
--- NOTE | 2021-01-10 14:16 | DIS ---
DATE OF ADMISSION: 01/05/2021 DATE OF DISCHARGE: 01/10/2021 DISCHARGE DIAGNOSES: 1. Sepsis, suspected pulmonary source, organism not identified. 2. Acute hypoxic respiratory failure. 3. Acute metabolic encephalopathy. 4. Acute kidney injury. 5. Hypernatremia. 6. Hypothermia. 7. Metabolic acidosis. 8. Rhabdomyolysis. 9. Alcohol abuse. CONSULTATIONS: 1. Dr. Diaz with Neurology Service. 2. Dr. Zhou and Dr. Judge with Pulmonology/Critical Care Service. PERTINENT LABORATORY AND X-RAY FINDINGS: Sodium ranged between 125 to 152, potassium ranged between 2.9 to 5.1, creatinine ranged between 0.73 to 1.33. Lactic acid level ranged between 1.5 to 2.5. Ammonia level 37. Total CK ranged between . Troponin I 0.026. Lipase 127. TSH 1.09. Cortisol level 19.50. CBC showed a white blood cell count ranging between 10.3 to 14.2, hemoglobin ranged between 11.5 to 13.7. Urine drug screen dated 01/05/2021 negative. Plasma alcohol level less than 10. COVID-19 PCR not detected on 01/05/2021. Influenza A and B, RNA not detected on 01/05/2021. Blood cultures x2 dated 01/05/2021 showed no growth at 48 hours. Urine culture dated 01/05/2021, showed no growth at [address] of the brain without contrast dated 01/05/2021, showed no acute intracranial process. Portable chest x-ray dated 01/05/2021, showed ill-defined opacity over the right lateral lung base. Mildly displaced right lateral rib fracture. Pelvic radiographs dated 01/05/2021, showed no acute displaced fracture. 2D transthoracic echocardiogram dated 01/06/2021, showed technically limited exam, ejection fraction 60% to 65%. Grade 1/[address] of the brain without contrast dated 01/07/2021, showed no acute intracranial process. HOSPITAL COURSE: The patient was initially evaluated after presenting with altered mentation and being found down at home. The patient was hypothermic after initial evaluation, placed on a Sharath Hugger and receiving 4 L of intravenous fluid with rewarming protocol. The patient also received empiric IV antibiotic therapy with vancomycin and cefepime after concern for potential underlying sepsis. The patient was also placed on mechanical ventilation due to respiratory failure and managed in the critical care unit. Chest imaging showing questionable infiltrate in the right lateral lung bases concerning for potential pulmonary source of infection. The patient continued on broad-spectrum IV antibiotic therapy in addition to mechanical ventilation throughout the hospital course. The patient also received IV fluids for acute kidney injury and associated rhabdomyolysis after the patient was apparently found down at home. Due to the patient's multitude of metabolic derangement and encephalopathy, discussions were had with the family regarding goals of care and poor overall prognosis. Due to patient's clinical presentation, respiratory failure and overall performance status, the family decided to pursue comfort care and transition to hospice. The patient was converted to do not attempt resuscitation status and will transition to hospice care on 01/10/2021. I have examined the patient at the time of transfer to inpatient hospice. DISCHARGE MEDICATIONS: None. CODE STATUS: Do not attempt resuscitation. DIET: N.p.o. status. DISPOSITION: Transfer to [facility] on 01/10/2021. TIME SPENT: Total time preparing and coordinating discharge, 35 minutes. Job ID: [id number]
== END 2021-01-10 13:14 | disposition hospice, inpatient (51) | DRG 870 ==
LOC: EDBD 13:17 → ERS 13:17 → ERHOLD 18:19 → PACU-TCU 01-06 02:12 → CCU 01-07 00:15
PROVIDERS: ADMIT Internal Medicine; ATTEND Family Medicine
PROC: 5A1955Z Respiratory Ventilation, Greater than 96 Consecutive Hours (ICD-10-PCS; principal; 2021-01-05)
PROC: 02HV33Z Insertion of Infusion Device into Superior Vena Cava, Percutaneous Approach (ICD-10-PCS; 2021-01-05)
PROC: 0BH17EZ Insertion of Endotracheal Airway into Trachea, Via Natural or Artificial Opening (ICD-10-PCS; 2021-01-05)
PROC: 3E033XZ Introduction of Vasopressor into Peripheral Vein, Percutaneous Approach (ICD-10-PCS; 2021-01-05)
DX: A41.9 Sepsis, unspecified organism (principal); J96.01 Acute respiratory failure with hypoxia; G93.41 Metabolic encephalopathy; Z66 Do not resuscitate; Z51.5 Encounter for palliative care; M62.82 Rhabdomyolysis; N17.9 Acute kidney failure, unspecified; E87.2 Acidosis; N39.0 Urinary tract infection, site not specified; E87.0 Hyperosmolality and hypernatremia; Z20.822 Contact with and (suspected) exposure to COVID-19; T68.XXXA Hypothermia, initial encounter; T14.90XA Injury, unspecified, initial encounter; W19.XXXA Unspecified fall, initial encounter; J44.9 Chronic obstructive pulmonary disease, unspecified; F10.10 Alcohol abuse, uncomplicated; R56.9 Unspecified convulsions; E16.2 Hypoglycemia, unspecified
CPT/HCPCS: 0240U; 31500; 36415; 36416; 36556; 36600; 51702; 70450; 71045; 72170; 80048; 80053; 80076; 80306; 80307; 81003; 81015; 82140; 82533; 82550; 82805; 83605; 83690; 83735; 83880; 84100; 84145; 84443; 84484; 85025; 87040; 87086; 93005; 93010; 93306; 94003; 95816; 95819; 95957; 96365; 96367; 96375; J0461; J0692; J1650; J1720; J1953; J2001; J2060; J3010; J3370; J3411; J3475; J3480; J3490; J7050; P9047; S0028

== ENCOUNTER 2021-01-10 13:28 | Inpatient (IN) | payer OTHER ==
[2021-01-10] MEDS ORDERED: Acetaminophen 650 MG Suppository PR PRN (13:45)
[2021-01-10] MEDS ORDERED: Ondansetron PF 4 MG/2 ML Vial IVP PRN (13:45)
[2021-01-10] MEDS ORDERED: Morphine 2 MG/ML VIAL SLOW IVP PRN (13:48)
[2021-01-10] MEDS ORDERED: Lorazepam 2 MG/ML VIAL SLOW IVP PRN (13:49)
[2021-01-10] MEDS ORDERED: Haloperidol Lactate 5 MG/ML VIAL SLOW IVP PRN (14:00)
[2021-01-10] MEDS ORDERED: Morphine 4 MG/ML VIAL SLOW IVP SCH (14:00)
[2021-01-10] MEDS ORDERED: Lorazepam 2 MG/ML VIAL SLOW IVP SCH (14:00)
== END 2021-01-10 14:30 | disposition expired | DRG 951 ==
LOC: CCU 13:28
PROVIDERS: ADMIT Family Medicine; ATTEND Family Medicine
DX: Z51.5 Encounter for palliative care (principal); A41.9 Sepsis, unspecified organism; E87.1 Hypo-osmolality and hyponatremia; N17.9 Acute kidney failure, unspecified; M62.82 Rhabdomyolysis; E87.2 Acidosis; T14.90XA Injury, unspecified, initial encounter
CPT/HCPCS: J2060; J2270